=== PATIENT | male | born 1975 | race African-American/Black ===

== ENCOUNTER 2017-09-09 09:29 | Emergency (ER) | payer OTHER ==
[2017-09-09 09:34] VITALS: BP 140/90; PULSE 78; TEMP 99.2; BMI 29.6
[2017-09-09] MEDS ORDERED: CYCLOBENZAPRINE HCL 10 MG TABLET (FP) PO ONE (11:21)
[2017-09-09] MEDS ORDERED: KETOROLAC TROMETHAMINE 60 MG/2 ML VIAL IM ONE (11:21)
[2017-09-09] MEDS ORDERED: CYCLOBENZAPRINE HCL 10 MG TABLET (FP) ONE (11:25)
[2017-09-09] MEDS ORDERED: KETOROLAC TROMETHAMINE 60 MG/2 ML VIAL ONE (11:25)
--- NOTE | 2017-09-09 11:29 | PDOC ---
History of Present Illness - General Chief Complaint: Back Pain Stated Complaint: BACK PAIN Time Seen by Provider: 09/09/17 11:19 History Source: Patient Exam Limitations: No Limitations - History of Present Illness Initial Comments: 09/09/17 11:22 42-year-old male presents to the emergency room with complaints of low back pain radiating down his left leg since this morning. Patient states yesterday had minor discomfort to the affected areas and took a Motrin with moderate effect. 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 " Patient states had called EMS since he was unable to stand up or get out of the cab. Patient denies saddle anesthesia, abdominal pain , numbness or tingling down the leg but does state intermittent sharp electric pain to the back of his left leg. Patient denies weakness of the lower extremity or incontinence. Occurred: reports: yesterday Severity: reports: moderate Pain Location: reports: back, lower extremity Method of Injury: Yes: unknown Associated Symptoms (Fall): trouble walking Past History - Past Medical History Allergies/Adverse Reactions: Allergies Allergy/AdvReac Type Severity Reaction Status Date / Time No Known Allergies Allergy Verified 09/09/17 09:34 Home Medications: Ambulatory Orders NK [No Known Home Medication] 09/09/17 COPD: No DVT: No - Suicide/Smoking/Psychosocial Hx Smoking History: Never smoked Have you smoked in the past 12 months: No Information on smoking cessation initiated: No Hx Alcohol Use: No Drug/Substance Use Hx: No Substance Use Type: None Patient Lives Alone: No Lives with/in: spouse/SO Trauma Specific PMHX - Complaint Specific PMHX Back Injury: Yes Review of Systems - Review of Systems Able to Perform ROS?: Yes Constitutional: No: Symptoms Reported ABD/GI: No: Symptoms Reported : No: Symptoms Reported Musculoskeletal: Yes: Back Pain, Muscle Pain (left buttock/ upper leg) Neurological: No: Headache, Weakness, Dizziness *Physical Exam - Vital Signs Last Vital Signs Temp Pulse Resp BP Pulse Ox 99.2 F 78 18 140/90 100 09/09/17 09:32 09/09/17 09:32 09/09/17 09:32 09/09/17 09:32 09/09/17 09:32 - Physical Exam General Appearance: Yes: Nourished, Appropriately Dressed. No: Apparent Distress Neck: negative: Tender, Decreased range of motion Musculoskeletal: negative: Vertebral Tenderness (no midline tenderness) Extremity: positive: Normal Capillary Refill, Normal Inspection, Normal Range of Motion, Tender (over left sciatica) Integumentary: positive: Normal Color, Warm, Moist Neurologic: positive: Motor Strength 5/5 (normal axial loading) ED Treatment Course - RADIOLOGY Radiology Studies Ordered: Category Date Time Status SPINE-LUMBAR ONLY [RAD] Stat Radiology 09/09/17 11:21 Ordered Medical Decision Making - Medical Decision Making 09/09/17 11:34 Patient with history of low back pain and intermittent sciatica. Patient states today he had a spasm causing him difficulty getting out of the vehicle while driving. Patient states has never had imaging of his back and neurologist takes Motrin for his discomfort. Patient ordered for lumbar x-ray along with Toradol IM and Flexeril. 09/09/17 12:42 Patient states feeling somewhat better but continues with a limp and quivering to his left lower back. Patient states would benefit from a cane or crutch. I explained to patient we have no canes in the ER and a crutch with muscle relaxer may hinder his movement. Pt ordered for flexeril and Motrin. 09/09/17 12:43 *DC/Admit/Observation/Transfer Diagnosis at time of Disposition: Left-sided low back pain with sciatica Qualifiers: Chronicity: chronic Sciatica laterality: sciatica of left side Qualified Code(s ): M54.42 - Lumbago with sciatica, left side - Discharge Dispostion Disposition: HOME Condition at time of disposition: Improved - Referrals Referrals: Christian Reese MD [Staff Physician] - - Patient Instructions Printed Discharge Instructions: DI for Back Pain With Sciatica Additional Instructions: Please take take Motrin and Flexeril as ordered. Please do not operate any heavy machinery while taking the Flexeril. If pain continues please follow up with referred orthopedist. - Post Discharge Activity
== END 2017-09-09 12:53 | disposition home or self-care (01) ==
LOC: JERFT 09:29
PROC: 3E0233Z Introduction of Anti-inflammatory into Muscle, Percutaneous Approach (ICD-10-PCS; principal; 2017-09-09)
DX: M54.42 Lumbago with sciatica, left side (principal)
CPT/HCPCS: 72100-TC-FY; 99281-25